=== PATIENT | female | born 1945 | race Two or more races ===

== ENCOUNTER 2020-02-29 13:27 | Inpatient (IN) | payer MEDICARE, MEDICAID ==
[~2020-02-29] VITALS: Ht 149.9 cm; Wt 43.1 kg
[2020-02-29] MEDS ORDERED: SODIUM CHLORIDE 0.9% 1,000 ML IV ONE (13:56)
[2020-02-29 16:04] LABS: BASOPHILS % 0.5 % (0.0-2.0); EOSINOPHILS % 0.3 % (0.0-5.0); HEMATOCRIT. 35.8 % (36.0-48.0); HEMOGLOBIN. 12.9 g/dL (12.0-16.0); LYMPHOCYTES % 9.8 % (20.0-50.0); MEAN CORPUSCULAR HEMOGLOBIN 31.7 pg (28.0-32.0); MEAN CORPUSCULAR VOLUME 88.2 fL (81.0-99.0); MEAN PLATELET VOLUME 7.4 fl (7.4-10.4); MONOCYTES % 5.6 % (2.0-8.0); NEUTROPHILS % 83.8 % (40.0-76.0); PLATELET 175 x1000/uL (130-400); RED BLOOD CELL COUNT 4.06 mill/uL (4.2-5.4); RED CELL DISTRIBUTION WIDTH 14.4 % (11.6-14.6)
[2020-02-29 16:08] LABS: CHLORIDE 98 mEq/L (98-107); PROTHROMBIN TIME 10.6 sec (9.6-11.0)
[2020-02-29 16:31] LABS: CLARITY URINE CLOUDY (CLEAR); COLOR URINE YELLOW (YELLOW); KETONES URINE NEGATIVE (NEGATIVE); LEUKOCYTE ESTERASE URINE 2+ (NEGATIVE); NITRITE URINE POSITIVE (NEGATIVE); OCCULT BLOOD URINE TRACE (NEGATIVE); PH URINE >=9.0 (4.5-8.0); PROTEIN URINE NEGATIVE (NEGATIVE); UROBILINOGEN URINE 0.2 E.U./dL (0.2-1.0)
[2020-02-29] MEDS ORDERED: CEFTRIAXONE 1 G PREMIX 50 ML IV ONE (17:15)
[2020-02-29] MEDS ORDERED: ACETAMINOPHEN 325MG TABLET PO PRN (19:30)
[2020-02-29] MEDS ORDERED: ONDANSETRON HCL 4MG/2ML INJ IV PRN (19:30)
[2020-02-29] MEDS ORDERED: TRAZODONE HCL 50MG TABLET PO PRN (19:30)
[2020-02-29 22:20] VITALS: BP_SYST 103; BP_SYST 144; BP_DIAS 60; BP_DIAS 78
[2020-02-29] MEDS: SODIUM CHLORIDE 0.9% 1,000 ML IV SCH (23:57)
[2020-02-29] MEDS: HEPARIN 5000 UNITS/ML VIAL SUBCUT SCH (23:58)
[2020-03-01] VITALS: BP 103/60
[2020-03-01 04:00] VITALS: BP 96/50
[2020-03-01 07:00] LABS: BASOPHILS % 0.8 % (0.0-2.0); EOSINOPHILS % 0.8 % (0.0-5.0); HEMATOCRIT. 31.9 % (36.0-48.0); HEMOGLOBIN. 11.1 g/dL (12.0-16.0); LYMPHOCYTES % 30.1 % (20.0-50.0); MEAN CORPUSCULAR HEMOGLOBIN 31.2 pg (28.0-32.0); MEAN CORPUSCULAR VOLUME 89.9 fL (81.0-99.0); MEAN PLATELET VOLUME 7.5 fl (7.4-10.4); MONOCYTES % 12.3 % (2.0-8.0); PLATELET 154 x1000/uL (130-400); RED BLOOD CELL COUNT 3.55 mill/uL (4.2-5.4); RED CELL DISTRIBUTION WIDTH 14.5 % (11.6-14.6)
[2020-03-01 07:09] LABS: CHLORIDE 104 mEq/L (98-107)
[2020-03-01 08:00] VITALS: BP 100/52
[2020-03-01] MEDS ORDERED: MULT-1116 MT (08:36)
[2020-03-01] MEDS ORDERED: METF100092 MT (08:36)
[2020-03-01] MEDS ORDERED: ASPI-864 PO (08:36)
[2020-03-01] MEDS: HEPARIN 5000 UNITS/ML VIAL SUBCUT SCH ×2 (08:42→21:33)
[2020-03-01] MEDS: SODIUM CHLORIDE 0.9% 1,000 ML IV SCH ×2 (08:42→21:31)
[2020-03-01] MEDS ORDERED: DEXTROSE 50% WATER 50ML SYRINGE IV PRN (10:00)
[2020-03-01] MEDS: BLOOD SUGAR DIAGNOSTIC STRIP TEST SCH ×3 (11:43→20:30)
[2020-03-01] MEDS: INSULIN LISPRO 100 UNITS/ML SUBCUT SCH ×3 (11:56→21:32)
[2020-03-01] MEDS: INSULIN GLARGINE UD 100 UNITS/ML SYR SUBCUT SCH (11:56)
[2020-03-01 12:00] VITALS: BP 109/61
[2020-03-01 16:00] VITALS: BP_SYST 115; BP_SYST 116; BP_SYST 122; BP_DIAS 61; BP_DIAS 63; BP_DIAS 64
[2020-03-01] MEDS ORDERED: CEFTRIAXONE 1 G PREMIX 50 ML IV SCH ×2 (17:00→19:00)
[2020-03-01 20:00] VITALS: BP_SYST 124; BP_SYST 132; BP_SYST 134; BP_DIAS 61; BP_DIAS 69; BP_DIAS 71
[2020-03-02] VITALS: BP_SYST 125; BP_SYST 140; BP_DIAS 72
[2020-03-02 04:00] VITALS: BP 125/65
[2020-03-02] MEDS: BLOOD SUGAR DIAGNOSTIC STRIP TEST SCH ×3 (06:37→16:21)
[2020-03-02] MEDS: INSULIN LISPRO 100 UNITS/ML SUBCUT SCH ×3 (06:37→16:42)
[2020-03-02 06:55] LABS: CHLORIDE 105 mEq/L (98-107)
[2020-03-02 06:57] LABS: LDL CHOLESTEROL 64 mg/dL (5-100)
[2020-03-02 07:00] LABS: HDL CHOLESTEROL 78 mg/dL (40-59)
[2020-03-02 07:01] LABS: EOSINOPHILS % 1.8 % (0.0-5.0); HEMATOCRIT. 34.8 % (36.0-48.0); HEMOGLOBIN. 12.2 g/dL (12.0-16.0); LYMPHOCYTES % 41.3 % (20.0-50.0); MEAN CORPUSCULAR HEMOGLOBIN 31.6 pg (28.0-32.0); MEAN CORPUSCULAR VOLUME 90.1 fL (81.0-99.0); MEAN PLATELET VOLUME 7.3 fl (7.4-10.4); MONOCYTES % 9.3 % (2.0-8.0); NEUTROPHILS % 46.6 % (40.0-76.0); PLATELET 156 x1000/uL (130-400); RED BLOOD CELL COUNT 3.86 mill/uL (4.2-5.4); RED CELL DISTRIBUTION WIDTH 14.4 % (11.6-14.6); TOTAL IRON BINDING CAPACITY 466 ug/dL (250-450)
[2020-03-02 07:05] LABS: T4 FREE 1.08 ng/dL (0.76-1.46)
[2020-03-02 07:17] LABS: VITAMIN B12 SERUM 1623 pg/mL (211-911)
[2020-03-02 08:00] VITALS: BP 110/54
[2020-03-02] MEDS: SODIUM CHLORIDE 0.9% 1,000 ML IV SCH (09:16)
[2020-03-02] MEDS: HEPARIN 5000 UNITS/ML VIAL SUBCUT SCH (09:17)
[2020-03-02] MEDS: INSULIN GLARGINE UD 100 UNITS/ML SYR SUBCUT SCH (09:17)
[2020-03-02 12:00] VITALS: BP 144/60
[2020-03-02] MEDS ORDERED: CIPR-263 MT (12:40)
[2020-03-02 15:43] VITALS: BP 120/66
[2020-03-02 16:10] VITALS: BP 120/66
[2020-03-02] MEDS ORDERED: CEFTRIAXONE 1,000 MG in DEXTROSE 5% WATER 50 ML IV SCH (19:00)
== END 2020-03-02 18:01 | disposition home or self-care (01) | DRG 73 ==
LOC: ER 13:27 → 5WST 18:41 → EDBEDREQ 18:47 → EDBEDREQTM 18:47 → ENRESERV 20:38
PROVIDERS: ADMIT Internal Medicine; ATTEND Internal Medicine
DX: G90.8 Other disorders of autonomic nervous system (principal); G93.41 Metabolic encephalopathy; E87.1 Hypo-osmolality and hyponatremia; N39.0 Urinary tract infection, site not specified; E11.65 Type 2 diabetes mellitus with hyperglycemia; D64.9 Anemia, unspecified; I95.9 Hypotension, unspecified; R74.0 Nonspecific elevation of levels of transaminase and lactic acid dehydrogenase [LDH]; E86.0 Dehydration; W06.XXXA Fall from bed, initial encounter; Z79.82 Long term (current) use of aspirin; Z79.84 Long term (current) use of oral hypoglycemic drugs; Y93.89 Activity, other specified; Y99.8 Other external cause status; Y92.003 Bedroom of unspecified non-institutional (private) residence as the place of occurrence of the external cause
CPT/HCPCS: 36415; 71045; 76700; 80053; 80061; 80076; 81003; 82607; 82962; 83036; 83540; 83550; 83735; 84439; 84443; 84481; 84484; 85025; 93005; 93306; 93880; 93970; 96365; 97162; 97166; 99291; J0696; J1644; J1815; J7030; J7060